=== PATIENT | male | born 1965 | race Caucasian/White ===

== ENCOUNTER 2017-10-01 05:54 | Emergency (ER) | payer OTHER | END 2017-10-01 08:35 | disposition home or self-care (01) | LOC: M ED 05:54 | DX: S01.01XA Laceration without foreign body of scalp, initial encounter (principal); M54.9 Dorsalgia, unspecified; W00.9XXA Unspecified fall due to ice and snow, initial encounter; Y92.9 Unspecified place or not applicable; Y93.89 Activity, other specified; Y99.0 Civilian activity done for income or pay; M51.36 Other intervertebral disc degeneration, lumbar region; Z79.899 Other long term (current) drug therapy | CPT/HCPCS: 72110 ==

== ENCOUNTER → 2018-10-20 | Outpatient (CLI) | payer OTHER ==
[~2018-10-20] MED LIST: AMLO5TAB6 PO; FENO160T10 PO
[2018-10-20 09:50] LABS: ALBUMIN 4.3 GM/DL (3.2-5.2); ALT/SGPT 44 U/L (12-78); BILIRUBIN,TOTAL 0.5 MG/DL (0.2-1.0); BLOOD UREA NITROGEN 14 MG/DL (7-18); CALCIUM LEVEL 9.4 MG/DL (8.5-10.1); CARBON DIOXIDE LEVEL 27 MEQ/L (21-32); CHLORIDE LEVEL 104 MEQ/L (98-107); CHOLESTEROL LEVEL 270 MG/DL (<200); CHOLESTEROL RISK RATIO 6.923 (<5); CREATININE FOR GFR 1.11 MG/DL (0.70-1.30); GLOMERULAR FILTRATION RATE > 60.0 (>56); GLUCOSE, FASTING 110 MG/DL (70-100); HDL CHOLESTEROL 39 MG/DL (>40); LDL CHOLESTEROL 190 MG/DL (<100); NON-HDL-C 231 MG/DL; POTASSIUM SERUM 4.4 MEQ/L (3.5-5.1); SODIUM LEVEL 139 MEQ/L (136-145); TRIGLYCERIDES LEVEL 206 MG/DL (<150)
== END ==
LOC: M WUC 08:14
PROVIDERS: ATTEND Internal Medicine
DX: E78.2 Mixed hyperlipidemia (principal)

== ENCOUNTER → 2020-05-22 | Outpatient (CLI) | payer BC, OTHER ==
[~2020-05-22] MED LIST changes: +AMLO1TAB24 PO; -AMLO5TAB6 PO
[2020-05-22 17:16] LABS: FREE T4 1.08 NG/DL (0.76-1.46); THYROID STIMULATING HORMONE 1.06 uIU/ML (0.358-3.740)
[2020-05-30 23:08] LABS: ACETYLCHOLINE RCPTOR BINDING A < 0.03 nmol/L (0.00-0.24); ACETYLCHOLINE RCPTOR BLOCK AB 17 % (0-25); ACETYLCHOLINE RCPTOR MODULATIN <12 % (0-20); ANTINUCLEAR ANTIBODIES DIRECT Negative (Negative); Lyme Disease IgG Ab 18 kDa Ban Absent (.); Lyme Disease IgG Ab 23 kDa Ban Absent (.); Lyme Disease IgG Ab 28 kDa Ban Absent (.); Lyme Disease IgG Ab 30 kDa Ban Absent (.); Lyme Disease IgG Ab 39 kDa Ban Absent (.); Lyme Disease IgG Ab 41 kDa Ban Present (.); Lyme Disease IgG Ab 45 kDa Ban Absent (.); Lyme Disease IgG Ab 58 kDa Ban Absent (.); Lyme Disease IgG Ab 66 kDa Ban Absent (.); Lyme Disease IgG Ab 93 kDa Ban Absent (.); Lyme Disease IgG West Blot Int Negative (.); Lyme Disease IgG/IgM Antibodie <0.91 ISR (0.00-0.90); Lyme Disease IgM Ab 23 kDa Ban Absent (.); Lyme Disease IgM Ab 39 kDa Ban Absent (.); Lyme Disease IgM Ab 41 kDa Ban Absent (.); Lyme Disease IgM Ab Quantitati 0.89 index (0.00-0.79); Lyme Disease IgM West Blot Int Negative (.)
== END ==
LOC: M WUC 13:13
PROVIDERS: ATTEND Psychiatry & Neurology Neurology
DX: G12.20 Motor neuron disease, unspecified (principal)

== ENCOUNTER → 2020-06-02 | Outpatient (CLI) | payer BC ==
--- NOTE | 2020-06-08 17:03 | REP ---
MRI STUDY BRAIN WITHOUT CONTRAST HISTORY: Primary motor neuron disease. Patient reports losing function of his arms. COMPARISON: Brain CT study 10/01/2017. TECHNIQUE: Axial and sagittal imaging planes are utilized. T1 and T2-weighted sequences include spine echo, fast spin echo, FLAIR, and diffusion-weighted sequences. MRI FINDINGS: No bony destructive lesion is seen in the calvarium. Craniocervical junction and upper cervical cord are normal in appearance. There is no MR evidence of intraorbital abnormality. There is mild mucosal thickening inferiorly in the left maxillary sinus. No other evidence of paranasal sinus disease. There is no evidence of intracranial hemorrhage. Diffusion-weighted scans show no focal evidence of restricted diffusion to suggest ischemia or other abnormality. No extra-axial fluid collection or mass is seen. Lateral, third, and fourth ventricles are normal in size and position. Moctezuma-white differentiation pattern is normal above and below the tentorium. No significant abnormal white matter lesion is seen. There are one or two foci of T2 hyperintensity in the periventricular white matter of the left parietal lobe consistent with mild small vessel changes. Exam is otherwise unremarkable. IMPRESSION: No acute intracranial abnormality. MTDD
--- NOTE | 2020-06-08 17:04 | REP ---
MRI THORACIC SPINE WITHOUT CONTRAST HISTORY: Primary motor neuron disease. TECHNIQUE: Axial and sagittal imaging planes are utilized. T1 and T2-weighted scans are obtained with and without fat saturation in the usual fashion. MRI FINDINGS: There is magnetic field susceptibility artifact throughout the lower cervical spine to the cervicothoracic junction. Cortical and medullary bone signal intensity are normal in the thoracic spine. Vertebral body heights and alignment are intact. The thoracic cord is normal in course, caliber, and signal intensity on T1 and T2-weighted scans. No thoracic cord compressive lesion is seen. At T12-L1, there is a small central focal disc protrusion, which effaces the ventral subarachnoid space, but does not compress or contact the cord. No other thoracic disc protrusion is appreciated. Mild central bulging is seen at T5-T6. No neural foraminal narrowing is appreciated. No extra vertebral abnormality is observed. IMPRESSION: Broad-based small central disc protrusion at T12-L1 and minimal disc bulging at T5-T6. No cord compressive lesion is seen. Cervical spine fusion. MTDD
--- NOTE | 2020-06-08 17:06 | REP ---
MRI LUMBOSACRAL SPINE WITHOUT CONTRAST HISTORY: Motor neuron disease. COMPARISON: No comparison MRI lumbosacral spine. Comparison lumbar spine radiographs are from 10/01/2017. TECHNIQUE: Axial and sagittal T1 and T2-weighted scans are obtained in the usual fashion with and without fat saturation. MRI FINDINGS: Lumbar vertebral body heights are preserved and alignment is normal. There is no evidence of spondylolysis or spondylolisthesis. Cortical and medullary bone signal intensity are normal. No extraspinal abnormalities observed. Axial and sagittal images at L1-2 demonstrate degenerative disc space narrowing and desiccation. There is diffuse disc bulging indenting the ventral margin of the thecal sac. This is the level of the tip of the conus medullaris. Canal size is borderline. Midline AP dimension of the thecal sac at this level is 9 mm. No foraminal stenosis is seen. At L2-L3, there are similar findings with diffuse disc bulging which effaces the ventral margin of the thecal sac. Borderline canal size. Midline AP dimension at L2-3 is 9.6 mm. No neural foraminal narrowing is appreciated. At L3-L4, there is diffuse disc bulging. Mild central canal stenosis is present due to this in combination with developmentally short pedicles and some ligamentum flavum and facet hypertrophy. There is right foraminal and left foraminal disc bulging producing mild bilateral foraminal narrowing at L3-L4. The midline AP dimension of the thecal sac at L3-4 is 9.6 mm. At L4-L5, there is mild diffuse disc bulging. Canal size is borderline. Ligamentum flavum hypertrophy and mild facet hypertrophy are present bilaterally. There is mild bilateral neural foraminal narrowing due to these factors. At L5-S1, there is a small central focal disc protrusion indenting the ventral margin of the thecal sac. This extends somewhat caudally. There is mild facet hypertrophy bilaterally. No neural foraminal narrowing. IMPRESSION: Degenerative spondylosis changes. Central disc protrusion at L5-S1. Mild bilateral foraminal narrowing at L3-4 and L4-5. Borderline canal size at L2-3, L3-4, and L4-5. MTDD
== END ==
LOC: M RAD 10:37
PROVIDERS: ATTEND Psychiatry & Neurology Neurology
DX: G12.20 Motor neuron disease, unspecified (principal)

== ENCOUNTER → 2020-09-13 | Outpatient (CLI) | payer BC ==
[~2020-09-13] MED LIST changes: +PROHANCE 279.3MG/ML 15ML VIAL As Ordered ONE; +PROHANCE 279.3MG/ML 5ML VIAL As Ordered ONE
--- NOTE | 2020-09-13 19:31 | REPVR ---
PROCEDURE INFORMATION: Exam: MR Cervical Spine Without and With Contrast Exam date and time: 09/13/2020 6:40 PM Age: 55 years old Clinical indication: Pain; Cervicalgia; Prior surgery; Surgery date: 6+ months; Additional info: Cervical disc radiculopathy TECHNIQUE: Imaging protocol: Multiplanar magnetic resonance images of the cervical spine without and with intravenous contrast. Contrast material: PROHANCE; Contrast volume: 20 ml; Contrast route: INTRAVENOUS (IV); COMPARISON: No relevant prior studies available. FINDINGS: Vertebral body height and AP alignment is preserved. Multilevel disc desiccation. Previous fusion involving C4 through T1. Associated artifact. No evidence of discitis/osteomyelitis. No abnormal cord signal or cord expansion. No epidural fluid collection. No pathologic intrathecal enhancement. C2-C3: No significant central or foraminal stenosis. C3-C4: Mild disc osteophyte complex with left greater than right uncinate spurring. No significant central canal stenosis. Moderate right and severe left foraminal stenosis. C4-C5: No significant central or foraminal stenosis. C5-C6: No significant central or foraminal stenosis. C6-C7: No significant central or foraminal stenosis. C7-T1: Minimal disc osteophyte complex without significant central or foraminal stenosis. IMPRESSION: 1. No acute abnormality involving the cervical spine. 2. Degenerative findings as above without significant central canal stenosis or cord compression. Electronically signed by: Jordon Bravo On 09/13/2020 19:32:13 PM
== END ==
LOC: M RAD 16:29
DX: M54.2 Cervicalgia (principal); M25.78 Osteophyte, vertebrae
CPT/HCPCS: 72156; A9576

== ENCOUNTER → 2023-12-03 | Outpatient (REF) | payer MEDICARE, BC ==
[~2023-12-03] MED LIST changes: -PROHANCE 279.3MG/ML 15ML VIAL As Ordered ONE; -PROHANCE 279.3MG/ML 5ML VIAL As Ordered ONE
[2023-12-03 12:36] LABS: ALBUMIN 3.8 G/DL (3.2-5.2); ALKALINE PHOSPHATASE 78 U/L (46-116); ALT/SGPT 24 U/L (7.0-40); AST/SGOT 14 U/L (<34); BILIRUBIN,TOTAL 0.5 MG/DL (0.3-1.2); BLOOD UREA NITROGEN 23 MG/DL (9-23); CALCIUM LEVEL 9.4 MG/DL (8.5-10.1); CARBON DIOXIDE LEVEL 27 MMOL/L (20-31); CHLORIDE LEVEL 105 MMOL/L (98-107); CHOLESTEROL LEVEL 170 MG/DL (<200); CHOLESTEROL RISK RATIO 4.56 (<5); CREATININE FOR GFR 0.31 MG/DL (0.70-1.30); GLOMERULAR FILTRATION RATE > 60.0 (>56); GLUCOSE, FASTING 92 MG/DL (60-100); HDL CHOLESTEROL 37.2 MG/DL (>40); LDL CHOLESTEROL 115.8 MG/DL (<100); NON-HDL-C 132.8 MG/DL; POTASSIUM SERUM 4.4 MMOL/L (3.5-5.1); SODIUM LEVEL 139 MMOL/L (136-145); TOTAL PROTEIN 6.3 G/DL (5.7-8.2); TRIGLYCERIDES LEVEL 85 MG/DL (<150)
== END ==
LOC: M LAB REF 11:57
PROVIDERS: ATTEND Internal Medicine
DX: E78.2 Mixed hyperlipidemia (principal)

== ENCOUNTER → 2023-12-31 | Outpatient (REF) | payer MEDICARE, BC ==
[2023-12-31 12:15] LABS: BLOOD UREA NITROGEN 17 MG/DL (9-23); CALCIUM LEVEL 9.7 MG/DL (8.5-10.1); CARBON DIOXIDE LEVEL 28 MMOL/L (20-31); CHLORIDE LEVEL 102 MMOL/L (98-107); CREATININE FOR GFR 0.28 MG/DL (0.70-1.30); GLOMERULAR FILTRATION RATE > 60.0 (>56); GLUCOSE, FASTING 100 MG/DL (60-100); POTASSIUM SERUM 4.3 MMOL/L (3.5-5.1); SODIUM LEVEL 138 MMOL/L (136-145)
== END ==
LOC: M LAB REF 11:06
PROVIDERS: ATTEND Internal Medicine
DX: I10 Essential (primary) hypertension (principal); G12.21 Amyotrophic lateral sclerosis

== ENCOUNTER → 2025-04-15 | Outpatient (REF) | payer MEDICARE, BC | LOC: M LAB REF 15:32 | PROVIDERS: ATTEND Physician Assistant Medical | DX: T14.8XXA Other injury of unspecified body region, initial encounter (principal); X58.XXXA Exposure to other specified factors, initial encounter ==

== ENCOUNTER → 2025-08-12 | Outpatient (REF) | payer OTHER, BC | LOC: M LAB REF 15:02 | PROVIDERS: ATTEND Physician Assistant Medical | DX: S81.809A Unspecified open wound, unspecified lower leg, initial encounter (principal); Y92.9 Unspecified place or not applicable; Y93.9 Activity, unspecified ==

== ENCOUNTER → 2025-08-19 | Outpatient (REF) | payer OTHER, BC | LOC: M LAB REF 14:27 | PROVIDERS: ATTEND Family Medicine | DX: J41.1 Mucopurulent chronic bronchitis (principal); G12.21 Amyotrophic lateral sclerosis ==